=== PATIENT | female | born 1970 | race Two or more races ===

== ENCOUNTER 2017-09-02 11:41 | Emergency (ER) | payer SELFPAY ==
--- NOTE | 2017-09-02 12:31 | ER Document Report ---
ED Medical Screen (RME) - General Chief Complaint: Possible Overdose Stated Complaint: POSSIBLE OVERDOSE Time Seen by Provider: 09/02/17 12:29 Mode of Arrival: Ambulatory Information source: Patient, Friend Notes: This is a 47-year-old female with a history of polysubstance and alcohol abuse brought into the emergency room because of altered mental status in the setting of alcohol abuse, possible baclofen overdose. Patient's just left her. She was brought in by a neighbor. TRAVEL OUTSIDE OF THE [place] IN LAST 30 DAYS: No - Related Data Allergies/Adverse Reactions: Penicillins Allergy (Verified 05/24/14 23:22) Past Medical History Psychiatric Medical History: Reports: Hx Depression Past Surgical History: Reports: Hx Breast Surgery - augmentation Physical Exam - Vital signs Vitals: Temp Pulse Resp BP Pulse Ox 98.0 F 76 16 109/64 98 09/02/17 11:51 09/02/17 11:51 09/02/17 11:51 09/02/17 11:51 09/02/17 11:51 Course - Vital Signs Vital signs: Temp Pulse Resp BP Pulse Ox 98.0 F 76 16 109/64 98 09/02/17 11:51 09/02/17 11:51 09/02/17 11:51 09/02/17 11:51 09/02/17 11:51 Doctor's Discharge - Discharge Referrals: LOVELY LOOMIS DO [Primary Care Provider] - Follow up as needed
[2017-09-02 13:00] LABS: ABSOLUTE EOSINOPHILS # (AUTO) 0.1 10^3/uL (0.0-0.6); ABSOLUTE MONOCYTES (AUTO) 0.6 10^3/uL (0.1-1.4); ABSOLUTE NEUT (AUTO) 4.5 10^3/uL (1.7-8.2); BASOPHILS % (AUTO) 0.4 % (0-2); EOSINOPHILS % (AUTO) 1.2 % (0-6); HEMATOCRIT 41.5 % (36.0-47.0); HEMOGLOBIN 14.2 g/dL (12.0-15.5); LYMPHOCYTES % (AUTO) 16.6 % (13-45); MEAN CORPUSCULAR HEMOGLOBIN 33.5 pg (27.0-33.4); MEAN CORPUSCULAR HGB CONC 34.3 g/dL (32.0-36.0); MEAN CORPUSCULAR VOLUME 98 fl (80-97); MONOCYTES % (AUTO) 9.2 % (3-13); PLATELET COUNT 253 10^3/uL (150-450); RED BLOOD COUNT 4.24 10^6/uL (3.72-5.28); RED CELL DISTRIBUTION WIDTH 13.8 % (11.5-14.0); SEGMENTED NEUTROPHILS % (AUTO) 72.6 % (42-78); TOTAL CELLS COUNTED % (AUTO) 100 %; WHITE BLOOD COUNT 6.2 10^3/uL (4.0-10.5)
[2017-09-02 13:02] LABS: APPEARANCE,URINE CLEAR; BILIRUBIN,URINE NEGATIVE (NEGATIVE); COLOR,URINE YELLOW; GLUCOSE, URINE NEGATIVE (NEGATIVE); KETONES,URINE NEGATIVE (NEGATIVE); LEUKOCYTE ESTERASE,URINE NEGATIVE (NEGATIVE); NITRITE,URINE NEGATIVE (NEGATIVE); PROTEIN,URINE NEGATIVE (NEGATIVE); URINE SPECIFIC GRAVITY 1.009; UROBILINOGEN,URINE NEGATIVE mg/dL (<2.0)
--- NOTE | 2017-09-02 13:15 | PSYCHOLOGICAL NOTE ---
Psych Note - Psych Note Psych Note: Reason for consult : overdose; unknown intent This is a 47-year-old female with a history of polysubstance and alcohol abuse brought into the emergency room because of altered mental status in the setting of alcohol abuse, possible baclofen overdose. Patient's just left her. She was brought in by a neighbor. Patient disclosed that she has been consuming alcohol however states not liquor only beer. She reports that the last time she probably drink beer was at 4 AM "I did not feel drunk I felt courage." Patient disclosed that she used to have a outpatient therapist by the name of Soila white however denies that she is on any medications. Patient confirms her marriage of 5 years has ended and there flew back to [facility] this morning. Clinician notes patient answers questions very oddly and seems confused at times. Patient asked for a beer stating that she knows that is what she needs "it is my cookbook on how to survive." She states that she feels her life has been "like hell" and reported that her has hurt her feelings; "can I tell you what he said... He said why do not you just go off yourself... That her my feelings. " Patient again stated she knows she needs a beer however when clinician asked if she thought it was appropriate for the hospital to provide beer she stated "no." Patient requested water upon reentering the patient's room the patient stated to clinician "thank you... I love you." [employer] nurse obtained collateral from neighbor pt was brought to the ED by her neighbor. the neighbor states that she went over to her house this morning and the pt was seeing aliens, flapping her arms, twitching and shaking quite a bit. Pts neighbor states that she has lot 40 lbs in the last 6 months. Pt is currently fighting with her and they are and the neighbor states that she has been anxious and trying to find out about infidelity in the marriage. Pt states that she does do illegal drugs to include cocaine which she states she hasn't done in the past "little while" but cannot give me a time frame, meth which she has in the house in a pipe above the stove and she did that as recently as this past week and she admits to smoking marijuana regularly. Pt has tried to commit suicide at least once before but isn't sure if it was more than once. She overdosed on ambien. Pt states that she drinks daily, all day long. Pt states that she drank this morning throughout the night. Pt seems very confused and is not a very good historian. This RN asked her if she slept last night and the pt states that she did but she isn't sure when or how long. Pt states that she took 3 baclofen and 3 hydrocodone while drinking this morning. pts mood is labile. She will laugh and smile and go straight to a flat affect and then is teary eyed. Clinician also spoke with patient's neighbor who disclosed the patient has been presenting in this odd behavior for the past few weeks. She states that the patient's home smells heavily of marijuana and there is small glass containers in the home however she thinks that is for vaping. She disclosed the patient has been seen talking to herself, stating that she sees aliens and has been observed flapping her arms thinking things were getting her. Patient's left on a flight last night and he has set up someone to come and see her because he has been very worried; " I know he has been telling her she needs to have a plan." Patient is alert and orientated to time person place and time. Mood is euthymic with congruent affect. Clinician notes patient's presentation is on. Patient is presenting as if intoxicated however toxicology screening indicates there is no alcohol in her system. Is currently unclear if the patient has used any other substances i.e. Kratom. Patient denies suicidal homicidal ideation. Patient endorses heavy alcoholism. Delusions are reported by patient 's neighbor however patient does not verbalize any while in [facility]. Thought content is disorganized. Patient had difficulty remembering when her anniversary was provided approximately 7 dates. Eye contact was fair. Attention and concentration are poor. Conversational speech was within normal rate, tone and prosody. Insight, judgment, impulse control is poor. Diagnosis V61.10 (Z63.0) relationship to stress with spouse Polysubstance abuse per patient Impression\\plan: Patient is recommended for overnight mental health hold for observation. Patient discloses polysubstance abuse to include heavy drinking however toxicology reports indicate nothing in her system. Patient does disclose she took 3 baclofen and 3 hydrocodone this morning which could contribute to her current presentation. Patient's neighbor discloses onset a few weeks ago of this odd behavior to include talking to herself delusions of aliens and things attacking her. Patient has also recently lost a significant amount of weight per the neighbor.
[2017-09-02 13:17] LABS: ALANINE AMINOTRANSFERASE 29 U/L (9-52); ALBUMIN 4.3 g/dL (3.5-5.0); ALKALINE PHOSPHATASE 62 U/L (38-126); ANION GAP 11 (5-19); ASPARTATE AMINO TRANSFERASE 32 U/L (14-36); BILIRUBIN,DIRECT 0.2 mg/dL (0.0-0.4); BILIRUBIN,TOTAL 0.3 mg/dL (0.2-1.3); BLOOD UREA NITROGEN 7 mg/dL (7-20); CALCIUM 9.8 mg/dL (8.4-10.2); CARBON DIOXIDE 29 mmol/L (22-30); CHLORIDE 99 mmol/L (98-107); GLUCOSE 100 mg/dL (75-110); POTASSIUM 4.2 mmol/L (3.6-5.0); SODIUM 138.8 mmol/L (137-145); TOTAL PROTEIN 7.4 g/dL (6.3-8.2)
[2017-09-02 13:22] LABS: ACETAMINOPHEN < 10 ug/mL (10-30); ALCOHOL < 10 mg/dL (NONE DETECTED); SALICYLATE < 1.0 mg/dL (2.0-20.0)
--- NOTE | 2017-09-02 13:29 | ER Document Report ---
ED General - General Chief Complaint: Possible Overdose Stated Complaint: POSSIBLE OVERDOSE Time Seen by Provider: 09/02/17 12:29 Mode of Arrival: Ambulatory Notes: Patient was brought in by a neighbor because she is not acting right. Patient admits to drinking heavily of beer on a daily basis for many months. Says she smoked some weed last night. Denies any other drugs or illicit substances. Says that she has been under a lot of stress. Her just left her. Says she took some extra pills so she could sleep, took 3 baclofen instead of the usual 1. Patient says that she did not intend to commit suicide or kill herself. She suffers from anxiety and depression and supposedly is on medications for the same. She is oriented 3. Has vomited this morning. Denies chest pains or abdominal pains. Says she has some headache. No history of head injury. Has not had any fever. Denies suicidal ideation. TRAVEL OUTSIDE OF THE [place] IN LAST 30 DAYS: No - Related Data Allergies/Adverse Reactions: Penicillins Allergy (Verified 05/24/14 23:22) Past Medical History - General Information source: Patient, Friend - Social History Smoking Status: Current Every Day Smoker Chew tobacco use (# tins/day): No Frequency of alcohol use: Heavy Drug Abuse: Cocaine, Marijuana, Methamphetamine, Prescription drugs Family History: Reviewed & Not Pertinent Patient has suicidal ideation: Yes Patient has homicidal ideation: No - Past Medical History Cardiac Medical History: Denies: Hx Coronary Artery Disease Endocrine Medical History: Denies: Hx Diabetes Mellitus Type 1, Hx Diabetes Mellitus Type 2 Psychiatric Medical History: Reports: Hx Anxiety, Hx Depression Past Surgical History: Reports: Hx Breast Surgery - augmentation Review of Systems - Review of Systems Notes: REVIEW OF SYSTEMS: CONSTITUTIONAL : Denies fever. EENT: Denies eye, ear, nose or mouth or throat pain or other symptoms. CARDIOVASCULAR: Denies chest pain. RESPIRATORY: Denies cough, chest congestion, or shortness of breath. GASTROINTESTINAL: Denies abdominal pain or nausea, vomiting, or diarrhea. GENITOURINARY: Denies difficulty or painful urinating, urinary frequency, blood in urine. MUSCULOSKELETAL: Denies back or neck pain. Denies joint pain or swelling. SKIN: Denies rash or skin lesions. NEUROLOGICAL: Denies LOC or altered mental status. Has a headache. Denies sensory loss or motor deficits. ALL OTHER SYSTEMS REVIEWED AND NEGATIVE. Physical Exam - Vital signs Vitals: Temp Pulse Resp BP Pulse Ox 98.0 F 76 16 109/64 98 09/02/17 11:51 09/02/17 11:51 09/02/17 11:51 09/02/17 11:51 09/02/17 11:51 Interpretation: Normal - Notes Notes: PHYSICAL EXAMINATION: GENERAL: Well-appearing, in no acute distress. Vital signs are normal. Patient is able to stand and ambulate. HEAD: Atraumatic, normocephalic. EYES: Pupils equal round and reactive to light, extraocular movements intact. ENT: oropharynx clear without exudates. Moist mucous membranes. NECK: Normal range of motion, supple. LUNGS: Breath sounds clear and equal bilaterally. HEART: Regular rate and rhythm without murmurs. ABDOMEN: Soft, nontender. No guarding or rebound. No masses. BACK: No tenderness throughout entire back. EXTREMITIES: Normal range of motion without pain. NEUROLOGICAL: Normal speech, normal gait. Normal sensory, motor, and reflex exams. Awake, alert, and oriented x3. Cranial nerves normal. PSYCH: Normal mood, normal affect. Seems depressed SKIN: Warm, dry, no rashes. Course - Re-evaluation Re-evalutation: 09/02/17 18:30 All of patient's lab studies are normal except for the drug screen being positive for marijuana. Her alcohol level is not detectable. There is no indication from her urine drug screen that she has had any other drugs or medications. Mental health counselors have been asked to consult on the patient and neither of us have an explanation about why the patient's behavior that she is exhibited here and what she said about drinking so much alcohol etc. I think they plan on keeping her overnight for observation. 09/02/17 19:05 Patient expressed a desire to leave. I did not think the patient should leave and she was so advised. She decided to stay. However, I do not think patient meets criteria for us to hold her against her will by IVC, so if she should decide that she is going to leave, I do not think that we can properly stop her from doing so. - Vital Signs Vital signs: Temp Pulse Resp BP Pulse Ox 98.0 F 76 15 109/69 99 09/02/17 11:51 09/02/17 11:51 09/02/17 17:00 09/02/17 13:00 09/02/17 17:00 - Laboratory Result Diagrams: 09/02/17 12:35 09/02/17 12:35 Laboratory results interpreted by me: 09/02/17 09/02/17 09/02/17 12:35 12:35 12:35 MCV 98 H MCH 33.5 H Urine Blood SMALL H Salicylates < 1.0 L Acetaminophen < 10 L - Diagnostic Test Radiology reviewed: Image reviewed, Reports reviewed - Patient CT scan is normal. Discharge - Discharge Clinical Impression: Altered mental status Condition: Stable Referrals: LOVELY LOOMIS DO [NO LOCAL MD] - Follow up as needed
[2017-09-02 13:35] LABS: URINE AMPHETAMINES SCREEN NEGATIVE; URINE BARBITURATES SCREEN NEGATIVE; URINE BENZODIAZEPINES SCREEN NEGATIVE; URINE COCAINE SCREEN NEGATIVE; URINE MARIJUANA (THC) SCREEN UNCONFIRMED POSITIVE; URINE METHADONE SCREEN NEGATIVE; URINE PHENCYCLIDINE SCREEN NEGATIVE
--- NOTE | 2017-09-02 13:54 | RADIOLOGY REPORT (SQ) ---
EXAM DESCRIPTION: CT HEAD WITHOUT COMPLETED DATE/TIME: 09/02/2017 1:43 pm REASON FOR STUDY: Altered mental status, drinking alcohol, weed COMPARISON: None. TECHNIQUE: Axial images acquired through the brain without intravenous contrast. Images reviewed wi th bone, brain and subdural windows. Additional sagittal and coronal reconstructions were generated. Images stored on PACS. All CT scanners at this facility use dose modulation, iterative reconstruction, and/or weight based d osing when appropriate to reduce radiation dose to as low as reasonably achievable (ALARA). [facility]: Dose Right [facility]: CareDose [facility]: Dose Right [facility]: Teradose 4D [facility]: Netac RADIATION DOSE: CT Rad equipment meets quality standard of care and radiation dose reduction techniq ues were employed. CTDIvol: 53.2 mGy. DLP: 1044 mGy-cm. mGy. LIMITATIONS: None. FINDINGS: VENTRICLES: Normal size and contour. CEREBRUM: No masses. No hemorrhage. No midline shift. No evidence for acute infarction. Normal gra y/white matter differentiation. No areas of low density in the white matter. CEREBELLUM: No masses. No hemorrhage. No alteration of density. No evidence for acute infarction. EXTRAAXIAL SPACES: No fluid collections. No masses. ORBITS AND GLOBE: No intra- or extraconal masses. Normal contour of globe without masses. CALVARIUM: No fracture. PARANASAL SINUSES: No fluid or mucosal thickening. SOFT TISSUES: No mass or hematoma. OTHER: No other significant finding. IMPRESSION: NORMAL BRAIN CT WITHOUT CONTRAST. EVIDENCE OF ACUTE STROKE: NO. COMMENT: Quality ID # [id number]: Final reports with documentation of one or more dose reduction techniques (e.g., Automated exposure control, adjustment of the mA and/or kV according to patient size, use of iterative reconstruction technique) TECHNICAL DOCUMENTATION: JOB ID: [id number] [employer]- All Rights Reserved Reading location - IP/workstation name: [email or web address]
[2017-09-02 14:06] VITALS: BP 109/69
--- NOTE | 2017-09-02 22:38 | EKG REPORT ---
SEVERITY:- NORMAL ECG - SINUS RHYTHM : Confirmed by: Joy Hendrickson MD 02-Sep-2017 22:37:32
== END 2017-09-02 19:44 | disposition left against medical advice (07) ==
LOC: ER 11:41
DX: R41.82 Altered mental status, unspecified (principal); T42.8X1A Poisoning by antiparkinsonism drugs and other central muscle-tone depressants, accidental (unintentional), initial encounter; F10.99 Alcohol use, unspecified with unspecified alcohol-induced disorder; Z88.0 Allergy status to penicillin; Z63.0 Problems in relationship with spouse or partner; X58.XXXA Exposure to other specified factors, initial encounter
CPT/HCPCS: 36415; 70450; 80053; 80307; 81001; 84443; 84703; 85025; 93005; 93010; 99285

== ENCOUNTER 2018-02-17 18:32 | Emergency (ER) | payer SELFPAY ==
--- NOTE | 2018-02-17 19:01 | ER Document Report ---
ED Medical Screen (RME) - General Chief Complaint: Psych Problem Stated Complaint: PSYCH EVAL Time Seen by Provider: 02/17/18 18:51 TRAVEL OUTSIDE OF THE [place] IN LAST 30 DAYS: No - HPI Notes: 02/17/18 18:59 Patient is a 47-year-old female that presents to the emergency department for chief complaint of suicidal ideation. Patient was brought into the emergency room by [facility]. She was at a house which mobile crisis states she was supposed to have been evicted from on 01/28/18. Tonight patient called the police stating somebody was trespassing on that property. Police were concerned for her mental status and called mobile [facility]. Patient did endorse suicidal ideation to mobile [facility]. Currently she states she has been having thoughts of suicide almost daily. She does not want to elaborate. ROS: GENERAL: Denies fever of chills CV: Denies chest pain Psych: Suicidal ideation PHYSICAL EXAMINATION: GENERAL: Well-appearing, well-nourished and in no acute distress. HEAD: Atraumatic, normocephalic. EYES: Pupils equal round extraocular movements intact, conjunctiva are normal. ENT: Nares patent NECK: Normal range of motion LUNGS: No respiratory distress Musculoskeletal: Normal range of motion NEUROLOGICAL: Normal speech, normal gait. PSYCH: Rapid transition from tears to laughter, poor eye contact, appears to be hallucinating and speaking to voices MDM: Patient seen and examined for rapid initial assessment. Vital signs reviewed. A comprehensive ED assessment and evaluation of the patient, analysis of test results and completion of the medical decision making process will be conducted by additional ED providers. - Related Data Allergies/Adverse Reactions: Penicillins Allergy (Verified 02/17/18 18:36) Past Medical History - Past Medical History Cardiac Medical History: Denies: Hx Coronary Artery Disease Endocrine Medical History: Denies: Hx Diabetes Mellitus Type 1, Hx Diabetes Mellitus Type 2 Renal/ Medical History: Denies: Hx Peritoneal Dialysis Psychiatric Medical History: Reports: Hx Anxiety, Hx Depression Past Surgical History: Reports: Hx Breast Surgery - augmentation Physical Exam - Vital signs Vitals: Temp Pulse Resp BP Pulse Ox 97.8 F 84 16 115/77 100 02/17/18 18:44 02/17/18 18:44 02/17/18 18:44 02/17/18 18:44 11/21/18 18:44 Course - Vital Signs Vital signs: Temp Pulse Resp BP Pulse Ox 97.8 F 84 16 115/77 100 02/17/18 18:44 02/17/18 18:44 02/17/18 18:44 02/17/18 18:44 02/17/18 18:44
[2018-02-17 20:02] LABS: ABSOLUTE EOSINOPHILS # (AUTO) 0.1 10^3/uL (0.0-0.6); ABSOLUTE MONOCYTES (AUTO) 0.3 10^3/uL (0.1-1.4); ABSOLUTE NEUT (AUTO) 2.1 10^3/uL (1.7-8.2); RED CELL DISTRIBUTION WIDTH 16.4 % (11.5-14.0); TOTAL CELLS COUNTED % (AUTO) 100 %
[2018-02-17 20:09] LABS: ABSOLUTE LYMPHOCYTES (AUTO) 1.7 10^3/uL (0.5-4.7); BASOPHILS % (AUTO) 0.7 % (0-2); EOSINOPHILS % (AUTO) 3.3 % (0-6); HEMATOCRIT 41.6 % (36.0-47.0); HEMOGLOBIN 14.2 g/dL (12.0-15.5); LYMPHOCYTES % (AUTO) 40.6 % (13-45); MEAN CORPUSCULAR HEMOGLOBIN 31.6 pg (27.0-33.4); MEAN CORPUSCULAR HGB CONC 34.1 g/dL (32.0-36.0); MEAN CORPUSCULAR VOLUME 93 fl (80-97); MONOCYTES % (AUTO) 6.4 % (3-13); PLATELET COUNT 253 10^3/uL (150-450); RED BLOOD COUNT 4.49 10^6/uL (3.72-5.28); WHITE BLOOD COUNT 4.2 10^3/uL (4.0-10.5)
[2018-02-17 20:12] LABS: APPEARANCE,URINE CLEAR; BILIRUBIN,URINE NEGATIVE (NEGATIVE); COLOR,URINE COLORLESS; GLUCOSE, URINE NEGATIVE (NEGATIVE); KETONES,URINE NEGATIVE (NEGATIVE); LEUKOCYTE ESTERASE,URINE NEGATIVE (NEGATIVE); NITRITE,URINE NEGATIVE (NEGATIVE); PROTEIN,URINE NEGATIVE (NEGATIVE); URINE SPECIFIC GRAVITY 1.002; UROBILINOGEN,URINE NEGATIVE mg/dL (<2.0)
[2018-02-17 20:17] LABS: ALANINE AMINOTRANSFERASE 29 U/L (9-52); ALBUMIN 4.8 g/dL (3.5-5.0); ALKALINE PHOSPHATASE 82 U/L (38-126); ANION GAP 13 (5-19); ASPARTATE AMINO TRANSFERASE 42 U/L (14-36); BILIRUBIN,DIRECT 0.3 mg/dL (0.0-0.4); BILIRUBIN,TOTAL 0.3 mg/dL (0.2-1.3); BLOOD UREA NITROGEN 5 mg/dL (7-20); CARBON DIOXIDE 28 mmol/L (22-30); CHLORIDE 104 mmol/L (98-107); GLUCOSE 99 mg/dL (75-110); POTASSIUM 4.2 mmol/L (3.6-5.0); SODIUM 145.1 mmol/L (137-145); TOTAL PROTEIN 8.5 g/dL (6.3-8.2)
[2018-02-17 20:27] LABS: URINE AMPHETAMINES SCREEN NEGATIVE; URINE BARBITURATES SCREEN NEGATIVE; URINE BENZODIAZEPINES SCREEN NEGATIVE; URINE COCAINE SCREEN NEGATIVE; URINE MARIJUANA (THC) SCREEN UNCONFIRMED POSITIVE; URINE METHADONE SCREEN NEGATIVE; URINE PHENCYCLIDINE SCREEN NEGATIVE
[2018-02-17 20:34] LABS: ACETAMINOPHEN < 10 ug/mL (10-30); SALICYLATE < 1.0 mg/dL (2.0-20.0)
[2018-02-17 20:35] LABS: ALCOHOL 362 mg/dL (NONE DETECTED)
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
[2018-02-18] MEDS ORDERED: HYDROXYZINE PAMOATE 25 MG CAPSULE PO ONE (03:30)
--- NOTE | 2018-02-18 09:22 | ER Document Report ---
Doctor's Note Notes: Laboratory 02/17/18 02/17/18 02/17/18 19:50 19:50 19:50 WBC 4.2 RBC 4.49 Hgb 14.2 Hct 41.6 MCV 93 MCH 31.6 MCHC 34.1 RDW 16.4 H Plt Count 253 Seg Neutrophils % 49.0 Lymphocytes % 40.6 Monocytes % 6.4 Eosinophils % 3.3 Basophils % 0.7 Absolute Neutrophils 2.1 Absolute Lymphocytes 1.7 Absolute Monocytes 0.3 Absolute Eosinophils 0.1 Absolute Basophils 0.0 Sodium 145.1 H Potassium 4.2 Chloride 104 Carbon Dioxide 28 Anion Gap 13 BUN 5 L Creatinine 0.52 Est GFR ( Amer) > 60 Est GFR (Non-Af Amer) > 60 Glucose 99 Calcium 9.0 Total Bilirubin 0.3 Direct Bilirubin 0.3 Neonat Total Bilirubin Not Reportable Neonat Direct Bilirubin Not Reportable Neonat Indirect Bili Not Reportable AST 42 H ALT 29 Alkaline Phosphatase 82 Total Protein 8.5 H Albumin 4.8 Urine Color COLORLESS Urine Appearance CLEAR Urine pH 5.0 Ur Specific [place] 1.002 Urine Protein NEGATIVE Urine Glucose (UA) NEGATIVE Urine Ketones NEGATIVE Urine Blood LARGE H Urine Nitrite NEGATIVE Urine Bilirubin NEGATIVE Urine Urobilinogen NEGATIVE Ur Leukocyte Esterase NEGATIVE Urine WBC (Auto) 0 Urine RBC (Auto) 0 Urine Bacteria (Auto) TRACE Urine Ascorbic Acid NEGATIVE Salicylates < 1.0 L Urine Opiates Screen Urine Methadone Screen Acetaminophen < 10 L Ur Barbiturates Screen Ur Phencyclidine Scrn Ur Amphetamines Screen U Benzodiazepines Scrn Urine Cocaine Screen U Marijuana (THC) Screen Serum Alcohol 362 H* 02/17/18 19:50 WBC RBC Hgb Hct MCV MCH MCHC RDW Plt Count Seg Neutrophils % Lymphocytes % Monocytes % Eosinophils % Basophils % Absolute Neutrophils Absolute Lymphocytes Absolute Monocytes Absolute Eosinophils Absolute Basophils Sodium Potassium Chloride Carbon Dioxide Anion Gap BUN Creatinine Est GFR ( Amer) Est GFR (Non-Af Amer) Glucose Calcium Total Bilirubin Direct Bilirubin Neonat Total Bilirubin Neonat Direct Bilirubin Neonat Indirect Bili AST ALT Alkaline Phosphatase Total Protein Albumin Urine Color Urine Appearance Urine pH Ur Specific [place] Urine Protein Urine Glucose (UA) Urine Ketones Urine Blood Urine Nitrite Urine Bilirubin Urine Urobilinogen Ur Leukocyte Esterase Urine WBC (Auto) Urine RBC (Auto) Urine Bacteria (Auto) Urine Ascorbic Acid Salicylates Urine Opiates Screen NEGATIVE Urine Methadone Screen NEGATIVE Acetaminophen Ur Barbiturates Screen NEGATIVE Ur Phencyclidine Scrn NEGATIVE Ur Amphetamines Screen NEGATIVE U Benzodiazepines Scrn NEGATIVE Urine Cocaine Screen NEGATIVE U Marijuana (THC) Screen UNCONFIRMED POSITIVE Serum Alcohol 02/18/18 09:20 47-year-old female presented with suicidal ideation accompanied by mobile crisis after [employer] called them because of patient's behavior. Patient found to have a markedly elevated alcohol level of 362. She was also positive for marijuana. As the rounding physician this AM, I assessed the patient's labs, vitals, and records. No concerning findings this morning. Patient complaining of nausea and headache. Awaiting psych recommendations. Plan at this time is to attempt to place the patient at the [facility] for detox. Otherwise patient will be discharged home. Patient is clinically sober. Patient was accepted by [facility] and mobile crisis is here to picking crew supervisor the patient. PHYSICAL EXAMINATION: GENERAL: Well-appearing, well-nourished and in no acute distress. HEAD: Atraumatic, normocephalic. EYES: Pupils equal round extraocular movements intact, conjunctiva are normal. LUNGS: No respiratory distress Musculoskeletal: Normal range of motion NEUROLOGICAL: Normal speech, normal gait. PSYCH: Normal mood, normal affect. SKIN: Warm, Dry, normal turgor, no rashes or lesions noted. 02/18/18 09:29 02/18/18 10:03 02/18/18 10:04 02/18/18 11:59
[2018-02-18] MEDS ORDERED: ONDANSETRON 4 MG TAB.RAPDIS PO ONE (09:32)
[2018-02-18] MEDS ORDERED: IBUPROFEN 600 MG TABLET PO ONE (09:32)
--- NOTE | 2018-02-18 09:40 | EKG REPORT ---
SEVERITY:- BORDERLINE ECG - SINUS RHYTHM BORDERLINE R WAVE PROGRESSION, ANTERIOR LEADS : Confirmed by: Joy Hendrickson MD 18-Feb-2018 09:39:17
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
[2018-02-18 12:01] VITALS: BP 130/74
== END 2018-02-18 12:10 | disposition home or self-care (01) ==
LOC: ER 18:32
DX: R45.851 Suicidal ideations (principal); F10.10 Alcohol abuse, uncomplicated; Y90.8 Blood alcohol level of 240 mg/100 ml or more; R11.0 Nausea; R51 Headache; F17.200 Nicotine dependence, unspecified, uncomplicated; Z60.8 Other problems related to social environment; Z59.8 Other problems related to housing and economic circumstances
CPT/HCPCS: 93005; 99285; 36415; 80307 ×4; 85025; 80053; 81001; 93010; S0119